=== PATIENT | female | born 1990 | race Caucasian/White ===

== ENCOUNTER 2017-01-05 20:12 | Emergency (ER) | payer OTHER ==
[2017-01-05 21:32] LABS: APPEARANCE,URINE CLOUDY; BILIRUBIN,URINE NEGATIVE (NEGATIVE); GLUCOSE, URINE NEGATIVE (NEGATIVE); KETONES,URINE NEGATIVE (NEGATIVE); LEUKOCYTE ESTERASE,URINE TRACE (NEGATIVE); NITRITE,URINE NEGATIVE (NEGATIVE); PROTEIN,URINE 30 mg/dL (NEGATIVE); URINE SPECIFIC GRAVITY 1.018
--- NOTE | 2017-01-06 00:59 | ER Document Report ---
ED General - General Chief Complaint: Urinary Problem Stated Complaint: BLOOD IN URINE Time Seen by Provider: 01/05/17 23:14 Notes: Patient is a 26-year-old female who presents with 1 week of gross hematuria. She has no medical problems denies any history of similar symptoms in the past. She was seen at [facility] and was told that she had urethritis but was not provided any treatment and was discharged home. She denies any vaginal trauma or abdominal trauma. Nothing seems to improve or worsen her symptoms although she notes when she bears down or has a bowel movement is when she tends to notice the most gross hematuria. Patient states she is absolutely certain that it is coming from her urethra. She is not on her menstrual cycle and is confident that she is not having any rectal bleeding. She has not had any fever or constitutional symptoms. She denies any abdominal pain. TRAVEL OUTSIDE OF THE [place] IN LAST 30 DAYS: No - Related Data Allergies/Adverse Reactions: No Known Allergies Allergy (Unverified 01/05/17 20:50) Past Medical History - General Information source: Patient - Social History Smoking Status: Current Every Day Smoker Chew tobacco use (# tins/day): No Frequency of alcohol use: None Drug Abuse: None Lives with: Alone Family History: Reviewed & Not Pertinent Patient has suicidal ideation: No Patient has homicidal ideation: No Renal/ Medical History: Denies: Hx Peritoneal Dialysis Surgical Hx: Negative Review of Systems - Review of Systems Notes: Constitutional: Negative for fever. HENT: Negative for sore throat. Eyes: Negative for visual changes. Cardiovascular: Negative for chest pain. Respiratory: Negative for shortness of breath. Gastrointestinal: Negative for abdominal pain, vomiting or diarrhea. Genitourinary: Positive for hematuria Musculoskeletal: Negative for back pain. Skin: Negative for rash. Neurological: Negative for headaches, weakness or numbness. 10 point ROS negative except as marked above and in HPI. Physical Exam - Vital signs Vitals: Temp Pulse Resp BP Pulse Ox 99.4 F 92 18 152/92 H 100 01/05/17 20:50 01/05/17 20:50 01/05/17 20:50 01/05/17 20:50 01/05/17 20:50 Interpretation: Hypertensive Notes: PHYSICAL EXAMINATION: GENERAL: Well-appearing, well-nourished and in no acute distress. HEAD: Atraumatic, normocephalic. EYES: Pupils equal round and reactive to light, extraocular movements intact, sclera anicteric, conjunctiva are normal. ENT: nares patent, oropharynx clear without exudates. Moist mucous membranes. NECK: Normal range of motion, supple without lymphadenopathy LUNGS: Breath sounds clear to auscultation bilaterally and equal. No wheezes rales or rhonchi. HEART: Regular rate and rhythm without murmurs ABDOMEN: Soft, nontender, normoactive bowel sounds. No guarding, no rebound. No masses appreciated. EXTREMITIES: Normal range of motion, no pitting or edema. No cyanosis. NEUROLOGICAL: No focal neurological deficits. Moves all extremities spontaneously and on command. PSYCH: Normal mood, normal affect. SKIN: Warm, Dry, normal turgor, no rashes or lesions noted. Course - Re-evaluation Re-evalutation: 01/06/17 00:58 Patient presents with gross hematuria for 1 week although denies any additional symptoms to suggest an acute pyelonephritis, nephrolithiasis. She has no flank tenderness on examination. No superpubic abdominal tenderness. She has not had any fever or constitutional symptoms. Urinalysis is overall only notable for gross hematuria although this could be a hemorrhagic cystitis without obvious infection. Will also obtain a renal and bladder ultrasound to evaluate for possible mass. If this is unremarkable empirically treat with a 5 day course of cephalexin and culture the urine. If this does not result in resolution of patient's gross hematuria, I have told her that she will need a cystoscopy and will refer her to urology. 01/06/17 02:02 Renal ultrasound shows a renal cyst but no additional acute findings. Will empirically treat with cephalexin and refer to urology. At this time will discharge with return precautions and follow-up recommendations. Verbal discharge instructions given a the bedside and opportunity for questions given. Medication warnings reviewed. Patient is in agreement with this plan and has verbalized understanding of return precautions and the need for primary care follow-up in the next 24-72 hours. - Vital Signs Vital signs: Temp Pulse Resp BP Pulse Ox 99.5 F 68 18 121/68 98 01/06/17 01:07 01/06/17 01:07 01/05/17 20:50 01/06/17 01:07 01/06/17 01:07 - Laboratory Laboratory results interpreted by me: 01/05/17 21:15 Urine Protein 30 H Urine Blood LARGE H Urine Urobilinogen 2.0 H Ur Leukocyte Esterase TRACE H Discharge - Discharge Clinical Impression: Renal cyst, left Hematuria Qualifiers: Hematuria type: gross Qualified Code(s): R31.0 - Gross hematuria Condition: Good Disposition: HOME, SELF-CARE Additional Instructions: Please take antibiotics as prescribed to see if this clears your hematuria. I encourag you to follow up with urology at your earliest ability for consideration of a cystoscope to look at your bladder and find the source of bleeding. Return if you develop fever, persistent vomiting, worsening of your hematuria, pain, or any other symptoms that are worrisome to you. Prescriptions: RX: Cephalexin Monohydrate [Keflex 500 mg Capsule] 500 mg PO Q6H 5 Days capsule Referrals: MANISHA DUARTE II, MD [[facility]] - Follow up in 3-5 days
--- NOTE | 2017-01-06 01:45 | RADIOLOGY REPORT (SQ) ---
EXAM DESCRIPTION: U/S RETROPERITON (RENAL/AORTA) COMPLETED DATE/TIME: 01/06/2017 1:33 am REASON FOR STUDY: gross hematuria, eval renal and bladder COMPARISON: None. TECHNIQUE: Dynamic and static grayscale images acquired of the kidneys and bladder and recorded on P ACS. Additional selected color Doppler and spectral images recorded. LIMITATIONS: None. FINDINGS: RIGHT KIDNEY: Normal size. Normal echogenicity. No solid or suspicious masses. No h ydronephrosis. No calcifications. LEFT KIDNEY: Normal size. Normal echogenicity. 1.2 cm cyst. No hydronephrosis. No calcificat ions. BLADDER: No masses. OTHER FINDINGS: No other significant finding. IMPRESSION: Left renal cyst. Otherwise normal. TECHNICAL DOCUMENTATION: JOB ID: [id number] [employer]- All Rights Reserved
[2017-01-06] MEDS ORDERED: CEPHALEXIN 500 MG CAPSULE PO ONE (02:02)
[2017-01-06 02:48] VITALS: BP 118/66
== END 2017-01-06 02:47 | disposition home or self-care (01) ==
LOC: ER 20:12
DX: R31.0 Gross hematuria (principal); Q61.01 Congenital single renal cyst; F17.200 Nicotine dependence, unspecified, uncomplicated
CPT/HCPCS: 36415; 76770; 81001; 87086; 99284